=== PATIENT | female | born 1965 | race Caucasian/White ===

== ENCOUNTER → 2020-07-11 02:00 | Outpatient (CLI) | payer OTHER, SELFPAY ==
[2020-07-11 19:33] LABS: SARS-CoV-2 RNA PCR Negative
== END ==
PROVIDERS: PCP Internal Medicine Geriatric Medicine; Visit Provider Plastic Surgery
DX: Z01.812 Encounter for preprocedural laboratory examination (principal); Z20.822 Contact with and (suspected) exposure to COVID-19
CPT/HCPCS: C9803; U0003; U0005

== ENCOUNTER 2020-07-15 01:23 | Day surgery (SDC) | payer OTHER, SELFPAY ==
[2020-07-09 14:26] VITALS: BMI 27.3
[2020-07-15] VITALS (11 sets, daily range): BP systolic 108–136; BP diastolic 67–84; PULSE 61–80; RESP 11–18; TEMP 36.1–36.8; O2SAT 94–100
--- NOTE | ~2020-07-15 | XR_ITS ---
EXAMINATION: XR surgery orthopedic EXAM DATE: 07/15/2020 10:37 INDICATION: Closed, possible open pinning left 5th phalanx. Fracture. TECHNIQUE: Fluoroscopy used during XR surgery orthopedic performed by Dr. Dom Pierce MD. Radi ologist was not present for the imaging or procedure. Total fluoroscopic time of 4 minutes. A total of 4 images obtained for the exam. The DAP for this procedure was 0.07 mGym2. No prior study. FINDINGS: Frontal, oblique and lateral images demonstrates 2 surgical pins fixing left 5th proximal phalangeal shaft fracture in anatomic alignment. Correlate with procedure note. IMPRESSION: Fluoroscopy used during left 5th proximal phalangeal fracture pinning. Reviewed, dictated and finalized at location A. IMPRESSION: Fluoroscopy used during left 5th proximal phalangeal fracture pinni ng.
--- NOTE | 2020-07-15 07:14 | WPDHPUPDATE1 ---
History and Physical Update Update Date/Time: 07/15/20 07:14 History and Physical has been reviewed, including an updated exam of the patient. There are NO changes in the patient's condition. Risks, benefits, and alternatives have been discussed and questions answered. Patient agrees to proceed with procedure.
[2020-07-15] MEDS: LACTATED RINGERS 1,000 ML 30 ML IV CONT ×2 (07:15→10:23)
--- NOTE | 2020-07-15 08:21 | WPDANESEPPF ---
Anes - Initial Pre Proc Eval Procedure: Operation Date: 07/15/20 08:30 Proposed Procedures p Closed, Possible Open Reduction And Splinting Or Pinning Of The Left Fifth Proximal Phalanx - Dom Pierce MD Date/Time: 07/15/20 08:21 Surgeon: Dom Pierce MD Pre Op Diagnosis: angulated displaced fx of proximal phalanx of Patient Data Age: 55 Gender: F Height: 5 ft 2 in Weight: 69 kg Allergies Allergy/AdvReac Type Severity Reaction Status Date / Time No Known Allergies Allergy Unverified 07/15/20 07:56 Home Medications Medication Instructions Recorded Confirmed Type ascorbic acid (vitamin C) [Vitamin 1 g PO DAILY 07/09/20 07/15/20 History C] calcium 600 mg PO BID 07/09/20 07/15/20 History cholecalciferol (vitamin D3) 25 mcg PO BID 07/09/20 07/15/20 History [Vitamin D3] Patient hx anesthesia problems: none Family hx anesthesia problems: none [facility] Social History Social History Smoking status: Never smoker Alcohol intake: never Substance use: never Substance use type: does not use Living arrangements: with family Spiritual care concerns: No Anes - Eval Final PreProcedure Day of Procedure 07/15/20 08:21 Patient weight: normal Heart: regular rate and rhythm Lungs: clear to auscultation Airway: Mallampati scale class II Neurological: alert and oriented Last oral intake: >/= 8 hours ASA classification: II Emergent: no Anesthetic plan: proceed Anesthesia type and monitoring: general LMA and standard monitoring Informed Consent: The patient's anesthetic plan and its attendant risks and benefits were discussed with the patient/family/POA. Questions were solicited and answers provided to the satisfaction of the patient/family/POA.
[2020-07-15] MEDS: LIDO 1%/EPINEPHRINE 1:100,000 50 ML VIAL 10 ML INFILTRATE (08:32)
[2020-07-15] MEDS: ceFAZolin 2 GM/D5W 50 ML 2 GM/50 ML BAG IVPB (08:32)
[2020-07-15] MEDS: BUPIVACAINE/EPINEPHRINE 0.5% 30 ML VIAL 6 ML INFILTRATE (10:03)
[2020-07-15] MEDS: BACITRACIN OINTMENT 15 GM TUBE 1 APPLIC TOPICAL (10:04)
--- NOTE | 2020-07-15 10:37 | PM.OP ---
Procedure Note - Brief Procedure Note - Brief Date of procedure: 07/15/20 Pre-op diagnosis: angulated displaced fx of proximal phalanx of Post-op diagnosis: same Procedure performed: Closed reduction and internal fixation of proximal phalanx left small finger Anesthesia: GLMA Surgeon: Dom Pierce MD Park Activities Coordinator: Connor Elizabeth Estimated blood loss (mL): 1 Tourniquet time (min): 0 Drains: No Packing: No Pathology: none sent Complications: No immediate complications Condition: stable Disposition: PACU
--- NOTE | 2020-07-15 10:44 | P.OP_ITS ---
Procedure Note - Detailed Date of procedure: 07/15/20 Pre-op diagnosis: angulated displaced fx of proximal phalanx of Post-op diagnosis: same Procedure performed: Closed reduction and internal C-wire fixation of a fracture of the proximal phalanx of the left small finger Description of procedure: The patient still had her splint on in the holding area and the site was designated on her forearm. She was taken to the operating room and placed supine on the operating table. She was given general anesthesia and the extremity was prepped and draped in usual fashion. The site was evaluated with preliminary images. The digit was blocked with 1% lidocaine with epinephrine. No tourniquet was used. We were able to reduce this fracture in closed fashion. The temporary longitudinal C wire was passed from the dorsal metacarpal head directly down the shaft of this proximal phalanx stabilizing it in satisfactory reduction. We corrected for rotation. A 0.035 in C wire was driven from the ulnar base of the phalanx diagonally across the fracture and into the shaft. The central wire was proximally repositioned to allow passage of the radial C-wire coming from the opposite condyle. The crossing C-wires were satisfactorily positioned. The central wire was removed. The metacarpophalangeal joints of the small and ring finger seem to move freely without interference from the C wires. The wires were cut external to the skin and Jurgan balls applied. 0.5% Marcaine with epinephrine was injected for additional block. A bulky bandage was applied to the fingers and hand. The patient is discharged with instructions in wound care and follow-up. A prescription for hydrocodone 14. Was sent to her pharmacy. She had received 2 g Ancef IV at the start of the case. Anesthesia: GLMA Surgeon: Dom Pierce MD Day Care Aide: Connor Elizabeth Estimated blood loss (mL): 1 Tourniquet time (min): 0 Packing: No Pathology: none sent Complications: No immediate complications Condition: stable Disposition: PACU
[2020-07-15] MEDS: fentaNYL CITRATE INJ (*CRX) 100 MCG/2 ML VIAL 25 MCG IV PUSH ×3 (11:03→11:17)
--- NOTE | 2020-07-15 11:19 | SUR.PHASEI ---
1115-DR. BROTHERS AT [facility] TO SPEAK WITH PT AND EXAMINE LEFT HAND. FINGERS MOBILE/WARM/FIFTH DIGIT BRUISED WITH TIP PINKISH.
[2020-07-15] MEDS: oxyCODONE HCL (*CRX) 5 MG TAB IR PO ×2 (11:50→12:35)
== END 2020-07-15 13:33 | disposition home or self-care (01) ==
PROVIDERS: PCP Internal Medicine Geriatric Medicine; Visit Provider Plastic Surgery
PROC: (CPT 26735; principal; 2020-07-15 08:30)
DX: S62.617A Displaced fracture of proximal phalanx of left little finger, initial encounter for closed fracture (principal); W23.0XXA Caught, crushed, jammed, or pinched between moving objects, initial encounter
CPT/HCPCS: 26735; A9270; C1713; C9803; J0690; J1100; J2250; J2405; J2704; J3010; J7120; U0003; U0005

== ENCOUNTER 2020-08-17 13:20 | Outpatient (CLI) | payer OTHER, SELFPAY ==
--- NOTE | ~2020-08-17 | XR_ITS ---
XR hand LT min 3V DATE: 08/17/2020 13:39 INDICATION: Left fifth digit fracture TECHNIQUE: 3 views COMPARISON: None FINDINGS: 2 K wires are noted providing fixation for a transverse metaphyseal fracture of the proxima l phalanx of the fifth digit, with near-anatomic position and alignment. There is severe joint space narrowing and spurring at the first carpometacarpal joint. There is osteo arthritic change at some interphalangeal joints. IMPRESSION: K wire fixation of proximal phalangeal metaphyseal fracture of fifth digit Severe osteoarthritic change at the first carpometacarpal joint Reviewed, dictated and finalized at location A. IMPRESSION: K wire fixation of proximal phalangeal metaphyseal fracture of fift h digit Severe osteoarthritic change at the first carpometacarpal joint
== END 2020-08-17 13:21 | disposition home or self-care (01) ==
PROVIDERS: PCP Internal Medicine Geriatric Medicine; Visit Provider Plastic Surgery
DX: S62.617D Displaced fracture of proximal phalanx of left little finger, subsequent encounter for fracture with routine healing (principal); X58.XXXD Exposure to other specified factors, subsequent encounter
CPT/HCPCS: 73130

== ENCOUNTER 2020-09-09 15:06 | Outpatient (CLI) | payer OTHER, SELFPAY ==
--- NOTE | ~2020-09-09 | XR_ITS ---
XR hand LT min 3V DATE: 09/09/2020 15:23 INDICATION: Fracture of proximal phalanx of fifth digit TECHNIQUE: 3 views COMPARISON: 08/17/2020 left hand FINDINGS: There are 2 K wires again removed since 08/17/2020. There is no interval change in position or alignment at the fracture of the proximal phalanx of the fifth digit. The fracture line is less ev ident/lucent since 08/17/2020 consistent with some interval healing. Prominent osteoarthritic change at the first carpometacarpal joint. IMPRESSION: Removal of K wires from proximal phalanx of fifth digit; evidence of some interval healin g and no interval change in position or alignment Reviewed, dictated and finalized at location A. IMPRESSION: Removal of K wires from proximal phalanx of fifth digit; evidence o f some interval healing and no interval change in position or alignment
== END 2020-09-09 15:07 | disposition home or self-care (01) ==
LOC: ANHIMG 15:10
PROVIDERS: PCP Internal Medicine Geriatric Medicine; Visit Provider Plastic Surgery
DX: S62.617D Displaced fracture of proximal phalanx of left little finger, subsequent encounter for fracture with routine healing (principal); X58.XXXD Exposure to other specified factors, subsequent encounter
CPT/HCPCS: 73130